=== PATIENT | female | born 1995 | race African-American/Black ===

== ENCOUNTER 2021-10-24 17:53 | Emergency (ER) | payer MEDICAID ==
[~2021-10-24] VITALS: Ht 157.5 cm; Wt 132.0 kg
[2021-10-24] MEDS ORDERED: ONDANSETRON HCL 4MG/2ML INJ IV STA (21:29)
[2021-10-24] MEDS ORDERED: OLANZAPINE 2.5MG TABLET PO SCH (21:30)
[2021-10-24] MEDS ORDERED: QUETIAPINE FUMARATE 50MG TABLET PO SCH (21:30)
[2021-10-24] MEDS ORDERED: HALOPERIDOL 5MG TABLET PO ONE (21:30)
[2021-10-24] MEDS ORDERED: SODIUM CHLORIDE 0.9% 1,000 ML IV ONE (21:30)
[2021-10-24] MEDS ORDERED: OXCARBAZEPINE 300MG TABLET PO SCH (21:30)
[2021-10-24] MEDS ORDERED: KETOROLAC 30MG/ML VIAL IV SCH (21:45)
[2021-10-24] MEDS ORDERED: OLANZAPINE 5MG TABLET PO SCH (22:00)
[2021-10-24 22:03] LABS: CLARITY URINE CLOUDY (CLEAR); COLOR URINE YELLOW (YELLOW); KETONES URINE NEGATIVE (NEGATIVE); LEUKOCYTE ESTERASE URINE 2+ (NEGATIVE); NITRITE URINE NEGATIVE (NEGATIVE); OCCULT BLOOD URINE 3+ (NEGATIVE); PROTEIN URINE NEGATIVE (NEGATIVE); SPECIFIC GRAVITY URINE 1.016 (1.005-1.030); UROBILINOGEN URINE 0.2 E.U./dL (0.2-1.0)
[2021-10-24 22:10] LABS: UCG SCREEN NEGATIVE
[2021-10-24 22:57] LABS: *BARBITURATES SCREEN URINE NEGATIVE (NEGATIVE); *BENZODIAZEPINES SCREEN URINE NEGATIVE (NEGATIVE); *COCAINE SCREEN URINE NEGATIVE (NEGATIVE)
[2021-10-24 22:58] LABS: *AMPHETAMINES SCREEN URINE NEGATIVE (NEGATIVE); CANNABINOID URINE SCREEN NEGATIVE (NEGATIVE); METHADONE URINE SCREEN NEGATIVE (NEGATIVE); OPIATES URINE SCREEN NEGATIVE (NEGATIVE); PHENCYCLIDINE URINE SCREEN NEGATIVE (NEGATIVE)
[2021-10-25 00:48] LABS: BASOPHILS % 0.8 % (0.0-2.0); EOSINOPHILS % 0.4 % (0.0-5.0); HEMATOCRIT. 31.2 % (36.0-48.0); HEMOGLOBIN. 10.6 g/dL (12.0-16.0); LYMPHOCYTES % 16.8 % (20.0-50.0); MEAN CORPUSCULAR VOLUME 79.5 fL (81.0-99.0); MEAN PLATELET VOLUME 8.4 fl (7.4-10.4); MONOCYTES % 8.5 % (2.0-8.0); NEUTROPHILS % 73.5 % (40.0-76.0); PLATELET 254 x1000/uL (130-400); RED BLOOD CELL COUNT 3.92 mill/uL (4.2-5.4)
[2021-10-25 01:01] LABS: CHLORIDE 112 mEq/L (98-107)
[2021-10-25 01:02] LABS: HCG SCREEN NEGATIVE
[2021-10-25 01:05] LABS: ETHANOL BLOOD < 10 mg/dL
[2021-10-25] MEDS ORDERED: BENZTROPINE MESYLATE 1MG TABLET PO SCH (09:00)
[2021-10-25] MEDS ORDERED: LITHIUM CARBONATE 150 MG CAPSULE PO SCH (09:00)
[2021-10-25] MEDS ORDERED: HALOPERIDOL 5MG TABLET PO SCH (09:00)
[2021-10-25] MEDS ORDERED: TOPUD PO (10:19)
[2021-10-25 10:22] VITALS: BP 136/82
== END 2021-10-25 10:32 | disposition home or self-care (01) ==
LOC: ER 17:53
DX: R44.0 Auditory hallucinations (principal); F41.9 Anxiety disorder, unspecified; Z88.0 Allergy status to penicillin
CPT/HCPCS: 36415; 71045; 80053; 80305; 80320; 81003; 81025; 84703; 85025; 93005; 96361; 96374; 96375; 99285; J1630; J1885; J2405; J7030; G0480